=== PATIENT | female | born 1935 | race Caucasian/White ===

== ENCOUNTER → 2023-08-29 10:49 | Outpatient (REF) | payer MEDICARE, OTHER, SELFPAY ==
[2023-08-29 16:16] LABS: % Basophils 1.4 % (0-2); % Eosinophils 5.6 % (0-6); % Immature Granulocytes 0.3 % (0-0.5); % Lymphocytes 26.7 % (20.5-51.1); % Monocytes 8.7 % (1.7-9.3); % Neutrophils 57.3 % (42.2-75.2); Absolute Basophils 0.1 10^3/uL (0-0.2); Absolute Eosinophils 0.2 10^3/uL (0-0.7); Absolute Monocytes 0.3 10^3/uL (0.1-0.6); Hematocrit 38.9 % (37.0-47.0); Hemoglobin 13.2 g/dL (12.0-16.0); Mean Corp Hgb Conc. 33.9 g/dL (33.0-37.0); Mean Corpuscular Hgb 32.7 pg (27.0-31.0); Mean Corpuscular Volume 96.3 fL (81.0-99.0); Mean Platelet Volume 11.5 fL (7.4-10.4); Nucleated Red Blood Cells % 0 %; Platelet Count 233 10^3/uL (130-400); Red Blood Cell Count 4.04 10^6/uL (4.20-5.40); Red Cell Dist. Width 12.8 % (11.5-14.5); White Blood Cell Count 3.6 10^3/uL (4.8-10.8)
[2023-08-29 16:21] LABS: ALT (SGPT) 11 U/L (0-35); AST (SGOT) 21 U/L (14-36); Albumin 4.3 g/dl (3.5-5.0); Alkaline Phosphatase 111 U/L (38-126); Blood Urea Nitrogen 9 mg/dl (7-17); Calcium 10.6 mg/dl (8.4-10.2); Carbon Dioxide 26 mmol/L (22-30); Chloride 99 mmol/L (98-107); Glucose 97 mg/dl (70-99); Potassium 4.6 mmol/L (3.5-5.1); Sodium 131 mmol/L (135-145); Total Bilirubin 0.5 mg/dl (0.2-1.3); Total Cholesterol 193 mg/dl (50-199); Total Protein 7.2 g/dl (6.3-8.2); Triglyceride 108 mg/dl (10-149); Very Low Density Lipoprotein 21 mg/dl (0-30); eGFR > 60.00
[2023-08-29 16:31] LABS: HDL Cholesterol 124 mg/dl; LDL Cholesterol, Calculated 48 mg/dl
[2023-08-29 16:51] LABS: TSH Reflex To Free T4 1.41 uIU/ml (0.47-4.68)
== END ==
LOC: HWWDC 10:49
PROVIDERS: ATTENDING PHYSICIAN Obstetrics & Gynecology; FAMILY PHYSICIAN Family Medicine; REFERRING PHYSICIAN Specialist
DX: R92.8 Other abnormal and inconclusive findings on diagnostic imaging of breast (principal); E03.9 Hypothyroidism, unspecified; E78.2 Mixed hyperlipidemia; D72.0 Genetic anomalies of leukocytes
CPT/HCPCS: 36415; 77061; 77065; 80053; 80061; 84443; 85025

== ENCOUNTER 2024-01-07 09:39 | Emergency (ER) | payer MEDICARE, OTHER, SELFPAY ==
[2024-01-07 09:44] VITALS: BP 144/61
[2024-01-07 10:00] VITALS: BP 129/55
--- NOTE | 2024-01-07 10:15 | ED.GENMED ---
History of Present Illness
<Brandy Lundberg DO, Resident - Last Filed: 01/07/24 14:17>
General
Chief Complaint: Cold/Flu/URI Symptoms
Source: patient and family (son)
Exam Limitations: none
Time Seen by Provider: 01/07/24 10:00
Nursing documentation reviewed up to this point in time: agreed with
History of Present Illness
History of Present Illness:
Ms. Yvette Hicks is an 88yo female pmh heart arrhythmia on propranolol, seizures, hypothyroidism, and IBS presenting to the ED with fever and cough from [facility]. Pt started with a nonproductive cough 5 days ago. She had a coughing
fit in the bathroom yesterday and went to her left knee to the ground. Pt has baseline balance issues, ambulates with a walker, and has been taught how to fall. She denies hitting her head or LOC. She was too weak to stand up and crawled to the bed.
+chills last night, denies fever. b/l sinus pressure, clear rhinnorhea, scratchy throat. -N/V/D, -CP, -SEYMOUR, -CP, -palpitations.
Pt's neighbor has been sick with similar sx, tested covid negative.
Her son is present at bedside.
Past History
<Brandy Lundberg DO, Resident - Last Filed: 01/07/24 14:17>
Past History
ED Past Medical History: Arrthythmia, Seizures ([place]), Hypothyroidism and Other (IBS, cervical/thoracic DJD)
ED Past Surgical History: Gynecological
Patient has exhibited threatening behavior?: No
Social History
Tobacco: Non-smoker
Alcohol: None
Drug: None
Personal:
Living: with family
Employment: Retired
Family History
Family History: Other (Noncontributory); Negative Early CAD
Review of Systems
<Brandy Lundberg DO, Resident - Last Filed: 01/07/24 14:17>
Review of Systems
Other source history: family
All Other Systems: ROS reviewed and negative except as documented in HPI and ROS
Phy Exam
<Brandy Lundberg DO, Resident - Last Filed: 01/07/24 14:17>
General Physical Exam
General Presentation: mild distress
General age: appears stated age
General Skin: warm and dry
General Mental: alert
General Hydration: dry mucous membranes
ENT Exam
ENT Exam: normocephalic and pharyngeal erythema
Eye Exam
Eye Exam: conjunctiva normal and other (dark circles around both eyes)
Cardiovascular Exam
Cardiovascular Exam: regular rate/rhythm, no edema, no gallop, no JVD, no murmur and normal peripheral pulses
Heart Sounds: normal
Pulmonary Exam
Pulmonary Exam: lungs clear, no rales, chest non tender, no rhonchi, no wheezing and no cough
Oxygen Status: room air
Cough: no cough
Gastrointestinal Exam
Gastrointestinal Exam: normal bowel sounds, non tender, soft, no organomegaly and non distended
Skin Exam
Skin Exam: normal color, no rash and other (no bruising)
Course
<Brandy Lundberg DO, Resident - Last Filed: 01/07/24 14:17>
Orders/Labs/Results
Orders:
Orders
01/07/24 09:52
Electrocardiogram (*1) Urgent
Reason for Study: Fatigue / Weakness
EKG- Treatment ONCE
01/07/24 09:55
COVID-19 Antigen Urgent
Source: Nasal Swab
Complete Blood Count/With Diff Urgent
Comprehensive Metabolic Panel Urgent
Lactic Acid Urgent
01/07/24 10:24
0.9% Sodium Chloride 1000 ml [Nss] 1,000 ml IV BOLUS
Dexamethasone Sod Phosphate [Decadron] 6 mg IV NOW STA
01/07/24 10:28
Acetaminophen [Tylenol] 650 mg PO NOW STA
01/07/24 11:11
Albuterol [ProAIR HFA INHALER] 2 puff INH R NOW STA
Dexamethasone Sod Phosphate [Decadron] 6 mg IV NOW STA
Abnormal Lab Results
01/07/24
09:55
WBC 4.3 L 10^3/uL
(4.8-10.8)
RBC 3.75 L 10^6/uL
(4.20-5.40)
Hct 35.1 L %
(37.0-47.0)
MCH 33.1 H pg
(27.0-31.0)
MPV 10.7 H fL
(7.4-10.4)
Absolute Lymphs (auto) 0.4 L 10^3/uL
(1.2-3.4)
Neutrophils % 79.4 H %
(42.2-75.2)
Lymphocytes % 9.7 L %
(20.5-51.1)
Monocytes % 10.2 H %
(1.7-9.3)
Sodium 133 L mmol/L
(135-145)
Glucose 120 H mg/dl
(70-99)
SARS-CoV-2 Antigen Positive A
(Negative)
01/07/24 09:55
01/07/24 09:55
Vital Signs
Initial and Last Documented VS:
Initial Vital Signs
Temp Pulse Resp BP Pulse Ox
101.8 F H 96 16 144/61 96
01/07/24 09:44 01/07/24 09:44 01/07/24 09:44 01/07/24 09:44 01/07/24 09:44
Last Documented Vital Signs
Temp Pulse Resp BP Pulse Ox
99.6 F 78 19 121/67 97
01/07/24 11:47 01/07/24 12:00 01/07/24 12:00 01/07/24 11:00 01/07/24 11:47
<Andrés Espinosa, - Last Filed: 01/07/24 11:26>
Orders/Labs/Results
Orders:
Orders
01/07/24 09:52
Electrocardiogram (*1) Urgent
Reason for Study: Fatigue / Weakness
EKG- Treatment ONCE
01/07/24 09:55
COVID-19 Antigen Urgent
Source: Nasal Swab
Complete Blood Count/With Diff Urgent
Comprehensive Metabolic Panel Urgent
Lactic Acid Urgent
01/07/24 10:24
0.9% Sodium Chloride 1000 ml [Nss] 1,000 ml IV BOLUS
Dexamethasone Sod Phosphate [Decadron] 6 mg IV NOW STA
01/07/24 10:28
Acetaminophen [Tylenol] 650 mg PO NOW STA
01/07/24 11:11
Albuterol [ProAIR HFA INHALER] 2 puff INH R NOW STA
Dexamethasone Sod Phosphate [Decadron] 6 mg IV NOW STA
Abnormal Lab Results
01/07/24
09:55
WBC 4.3 L 10^3/uL
(4.8-10.8)
RBC 3.75 L 10^6/uL
(4.20-5.40)
Hct 35.1 L %
(37.0-47.0)
MCH 33.1 H pg
(27.0-31.0)
MPV 10.7 H fL
(7.4-10.4)
Absolute Lymphs (auto) 0.4 L 10^3/uL
(1.2-3.4)
Neutrophils % 79.4 H %
(42.2-75.2)
Lymphocytes % 9.7 L %
(20.5-51.1)
Monocytes % 10.2 H %
(1.7-9.3)
Sodium 133 L mmol/L
(135-145)
Glucose 120 H mg/dl
(70-99)
SARS-CoV-2 Antigen Positive A
(Negative)
01/07/24 09:55
01/07/24 09:55
Vital Signs
Initial and Last Documented VS:
Initial Vital Signs
Temp Pulse Resp BP Pulse Ox
101.8 F H 96 16 144/61 96
01/07/24 09:44 01/07/24 09:44 01/07/24 09:44 01/07/24 09:44 01/07/24 09:44
Last Documented Vital Signs
Temp Pulse Resp BP Pulse Ox
99.6 F 78 19 121/67 97
01/07/24 11:47 01/07/24 12:00 01/07/24 12:00 01/07/24 11:00 01/07/24 11:47
<Brandy Lundberg DO, Resident - Last Filed: 01/07/24 14:17>
MDM/Problems Addressed
Differential Diagnosis Includes:
<Brandy Lundberg DO, Resident - Last Filed: 01/07/24 14:17>
*Critical Care Note
Total Time (30-74mins, 75-104mins- exclusive of procedures): Not Applicable
<Andrés Espinosa DO - Last Filed: 01/07/24 11:26>
Update Note
Update Note:
Update patient takes Butabarb not a candidate for Paxlovid
ED Attending Note
<Brandy Lundberg DO, Resident - Last Filed: 01/07/24 14:17>
-
Portions of this chart may have been created with voice recognition software.� Occasional wrong word or��sound alike� substitutions may have occurred due to the inherent limitations of voice recognition software.
<Andrés Espinosa DO - Last Filed: 01/07/24 11:26>
ED Attending Note
Patient seen and examined by attending physician: Yes
I performed a history and physical exam of patient and discussed management with resident, I reviewed resident's note and agree with documented findings and plan of care.: Yes
ED Attending Note:
Seen with resident agree with assessment and plan nontoxic elderly female with chills cough COVID-positive not requiring oxygen, plan will be fluids Tylenol albuterol, dose of steroids has like she has some delirium with steroids previously, will
ask pharmacy to review her meds see if she would be a candidate for Paxlovid
Discharge Plan
Departure
Patient Disposition: Home (Routine Discharge)
Date of Disposition: 01/07/24
Time of Disposition: 11:26
Patient with high blood pressure during this ER visit?: No
Condition: Good
Covid-19: Confirmed COVID-19
Discharge Problem:
COVID-19
Instructions: Viral Syndrome (DC), COVID-19 ED, Coronavirus Home Quarantine
Prescriptions:
New
albuterol sulfate 90 mcg/actuation aerosol powdr breath activated
2 inh inhalation Q6H PRN (Reason: shortness of breath) Qty: 1 0RF
No Action
levothyroxine 137 mcg tablet
137 mcg PO DAILY
propranolol 10 mg Tablet
10 mg PO DAILYPRN PRN (Reason: irregular heart rate )
amitriptyline 10 mg Tablet
10 mg PO DAILY PRN (Reason: pain )
phenobarbital 64.8 mg tablet
129.6 mg PO HS
omeprazole 20 mg Capsule,Delayed Release(Dr/Ec)
20 mg PO DAILY PRN (Reason: gerd)
cholecalciferol (vitamin D3) [Vitamin D3] 50 mcg (2,000 unit) Tablet
50 mcg PO DAILY
Caltrate 600 plus D 600 mg-20 mcg (800 unit) Tablet,Chewable
1 tab PO DAILY
Referrals:
Darin Cabrera, DO [Family Provider] - Follow up in 10 days
Activity Restrictions/Additional Instructions:
Drink plenty of fluids, Tylenol every 4-6 hours for fever body ache
Albuterol 1 to 2 puffs every 4-6 hours
Interventions
Interventions:
*Risk Screen - Suicide Last Done: 01/07/24 09:50
*General Assessment Last Done: 01/07/24 09:50
*Neglect/Abuse Screening Last Done: 01/07/24 09:50
*ED COVID-19 Vaccine History Last Done: 01/07/24 09:50
*Nursing Disposition Last Done: 01/07/24 12:12
ED- Pulmonary Assessment Last Done: 01/07/24 09:50
Discharge Date and Time
Discharge Date/Time: 01/07/24 12:13
Print Language: [id number]
[2024-01-07 10:20] LABS: % Basophils 0.5 % (0-2); % Immature Granulocytes 0.2 % (0-0.5); % Lymphocytes 9.7 % (20.5-51.1); % Monocytes 10.2 % (1.7-9.3); % Neutrophils 79.4 % (42.2-75.2); Absolute Lymphocytes 0.4 10^3/uL (1.2-3.4); Absolute Monocytes 0.4 10^3/uL (0.1-0.6); Absolute Neutrophils 3.4 10^3/uL (1.4-6.5); Hematocrit 35.1 % (37.0-47.0); Hemoglobin 12.4 g/dL (12.0-16.0); Mean Corp Hgb Conc. 35.3 g/dL (33.0-37.0); Mean Corpuscular Hgb 33.1 pg (27.0-31.0); Mean Corpuscular Volume 93.6 fL (81.0-99.0); Mean Platelet Volume 10.7 fL (7.4-10.4); Nucleated Red Blood Cells % 0 %; Platelet Count 186 10^3/uL (130-400); Red Blood Cell Count 3.75 10^6/uL (4.20-5.40); Red Cell Dist. Width 12.9 % (11.5-14.5); White Blood Cell Count 4.3 10^3/uL (4.8-10.8)
[2024-01-07 10:22] LABS: COVID-19 Antigen Positive (Negative); Lactic Acid 0.8 mmol/L (0.7-2.0)
[2024-01-07 10:23] LABS: ALT (SGPT) 18 U/L (0-35); AST (SGOT) 28 U/L (14-36); Albumin 3.8 g/dl (3.5-5.0); Alkaline Phosphatase 106 U/L (38-126); Blood Urea Nitrogen 10 mg/dl (7-17); Calcium 10.2 mg/dl (8.4-10.2); Carbon Dioxide 26 mmol/L (22-30); Chloride 100 mmol/L (98-107); Glucose 120 mg/dl (70-99); Potassium 4.5 mmol/L (3.5-5.1); Sodium 133 mmol/L (135-145); Total Bilirubin 0.3 mg/dl (0.2-1.3); Total Protein 6.4 g/dl (6.3-8.2); eGFR > 60.00
[2024-01-07] MEDS: NSS 1000 IV (10:32)
[2024-01-07] MEDS: TYLENOL 650 MG PO (10:32)
[2024-01-07 11:00] VITALS: BP 121/67
[2024-01-07] MEDS: ProAIR HFA INHALER 2 PUFF INH (11:32)
[2024-01-07] MEDS: DECADRON 6 MG IV (11:35)
== END 2024-01-07 12:13 | disposition home or self-care (01) ==
LOC: EMR 09:39
PROVIDERS: EMERGENCY PHYSICIAN Emergency Medicine; FAMILY PHYSICIAN Family Medicine
DX: U07.1 COVID-19 (principal); Z11.52 Encounter for screening for COVID-19; E03.9 Hypothyroidism, unspecified
CPT/HCPCS: 99284; 94640; 96374; 96361; 80053; 83605; 85025; 87811; 93005

== ENCOUNTER 2024-06-16 06:31 | Day surgery (SDC) | payer MEDICARE, OTHER, SELFPAY | END 2024-06-16 12:56 | disposition home or self-care (01) | LOC: GI 06:31 | PROVIDERS: ATTENDING PHYSICIAN Specialist | DX: Z12.11 Encounter for screening for malignant neoplasm of colon (principal); D12.0 Benign neoplasm of cecum; D12.3 Benign neoplasm of transverse colon; D12.4 Benign neoplasm of descending colon; K57.30 Diverticulosis of large intestine without perforation or abscess without bleeding; R19.4 Change in bowel habit; Z86.0101 Personal history of adenomatous and serrated colon polyps | CPT/HCPCS: 45380; 88305 ==

== ENCOUNTER 2024-09-08 06:07 | Day surgery (SDC) | payer MEDICARE, OTHER, SELFPAY ==
[2024-09-08 09:49] VITALS: BMI 23.9
[2024-09-08 09:55] VITALS: BMI 23.9
[2024-09-08 09:56] VITALS: BP 166/77
[2024-09-08 12:34] VITALS: BP 132/72
[2024-09-08 12:45] VITALS: BP 148/77
[2024-09-08 13:03] VITALS: BP 153/67
== END 2024-09-08 14:00 | disposition home or self-care (01) ==
LOC: GI 06:07
PROVIDERS: ATTENDING PHYSICIAN Internal Medicine Gastroenterology
DX: K63.5 Polyp of colon (principal); K64.0 First degree hemorrhoids; K57.30 Diverticulosis of large intestine without perforation or abscess without bleeding; D12.0 Benign neoplasm of cecum
CPT/HCPCS: 45390; 88305

== ENCOUNTER → 2024-11-05 09:53 | Outpatient (REF) | payer MEDICARE, OTHER, SELFPAY | LOC: HWLAB 09:53 | PROVIDERS: ATTENDING PHYSICIAN Specialist; FAMILY PHYSICIAN Family Medicine | DX: R19.8 Other specified symptoms and signs involving the digestive system and abdomen (principal) | CPT/HCPCS: 87324; 87449 ==

== ENCOUNTER → 2024-12-16 09:50 | Outpatient (REF) | payer MEDICARE, OTHER, SELFPAY ==
[2024-12-16 11:42] LABS: Hematocrit 36.6 % (37.0-47.0); Hemoglobin 12.6 g/dL (12.0-16.0); Mean Corp Hgb Conc. 34.4 g/dL (33.0-37.0); Mean Corpuscular Volume 94.8 fL (81.0-99.0); Nucleated Red Blood Cells % 0 %; Platelet Count 238 10^3/uL (130-400); Red Cell Dist. Width 13.2 % (11.5-14.5)
[2024-12-16 11:56] LABS: ALT (SGPT) 12 U/L (0-35); AST (SGOT) 17 U/L (14-36); Albumin 4.3 g/dl (3.5-5.0); Alkaline Phosphatase 97 U/L (38-126); Blood Urea Nitrogen 10 mg/dl (7-17); Calcium 10.8 mg/dl (8.4-10.2); Carbon Dioxide 25 mmol/L (22-30); Chloride 102 mmol/L (98-107); Glucose 98 mg/dl (70-99); Potassium 4.5 mmol/L (3.5-5.1); Sodium 132 mmol/L (135-145); Total Protein 7.3 g/dl (6.3-8.2); eGFR > 60.00
== END ==
LOC: HWLAB 09:50
PROVIDERS: ATTENDING PHYSICIAN Family Medicine; REFERRING PHYSICIAN Specialist
DX: E03.9 Hypothyroidism, unspecified (principal); R56.9 Unspecified convulsions
CPT/HCPCS: 36415; 80053; 84439; 84443; 85025